=== PATIENT | male | born 1935 ===

== ENCOUNTER 2017-05-22 17:54 | Emergency (ER) | payer MEDICARE, MEDICAID ==
[2017-05-22 19:57] VITALS: RESP 18
[2017-05-22] MEDS ORDERED: Sodium Chloride 0.9% 500 ML IV ONE (20:04)
--- NOTE | 2017-05-22 20:04 | C.PDOC ---
History Of Present Illness Patient presents to the ER with a complaint of weakness, not feeling well, and malaise that has been worsening over the last 3 days; associated with a low grade fever. Denies nausea, vomiting, or diarrhea. Time Seen by Provider: 05/22/17 19:59 Chief Complaint (Nursing): Weakness/Neurological Deficit History Per: Patient History/Exam Limitations: no limitations Onset/Duration Of Symptoms: Days (3) Current Symptoms Are (Timing): Still Present Activity At Onset Of Symptoms: Other (No known) Seizure Or Post-ictal Symptoms: None Possible Causative Factor(s): Other (Not known) Fall Associated With With Symptoms: No Recent travel outside of the [place]: No - Symptoms Of CVA Associated Symptoms: denies: Impaired Speech, Seizure Activity, New Vision Deficit(Left), New Vision Deficit(Right), Decreased Ability To Walk, New Confusion, Other Recent Aspirin Use: No Current Coumadin Use?: No Recent Head Trauma: No Past Medical History Reviewed: Historical Data, Nursing Documentation, Vital Signs Vital Signs: Last Vital Signs Temp 98.3 F 05/22/17 22:12 Pulse 61 05/22/17 22:12 Resp 18 05/22/17 22:12 BP 105/61 05/22/17 22:12 Pulse Ox 97 05/22/17 22:12 - Medical History PMH: HTN Surgical History: No Surg Hx Family History: States: Unknown Family Hx - Social History Hx Alcohol Use: No Hx Substance Use: No - Immunization History Hx Tetanus Toxoid Vaccination: No Hx Influenza Vaccination: Yes Hx Pneumococcal Vaccination: No Review Of Systems Constitutional: Positive for: Fever, Weakness, Malaise Gastrointestinal: Negative for: Nausea, Vomiting, Diarrhea Physical Exam - Physical Exam Appears: Non-toxic, Other (Awake, Alert) Skin: Warm, Dry Oral Mucosa: Dry Chest: Symmetrical, No Tenderness Cardiovascular: Rhythm Regular, No Murmur Respiratory: No Rales, No Rhonchi, No Wheezing Gastrointestinal/Abdominal: Soft, No Tenderness Neurological/Psych: Oriented x3 ED Course And Treatment - Laboratory Results Result Diagrams: 05/22/17 20:11 05/22/17 20:11 ECG: Interpreted By Me, Viewed By Me ECG Rhythm: Nonspecific Changes O2 Sat by Pulse Oximetry: 95 (Room air) Pulse Ox Interpretation: Normal - Radiology CXR: Interpreted by Me, Viewed By Me CXR Interpretation: No: Infiltrates, Fracture, Pnemothorax Progress Note: Blood work and CXR ordered. Tylenol and IV fluids administered. Reevaluation Time: 22:16 Reassessment Condition: Improved Medical Decision Making Medical Decision Making: Upon provider reevaluation patient is feeling better, is medically stable, and requires no further treatment in the ED at this time. Patient will be discharged home . Counseling was provided and all questions were answered regarding diagnosis and need for follow up with the referred clinic. There is agreement to discharge plan. Return if symptoms persist or worsen. Disposition Counseled Patient/Family Regarding: Studies Performed, Diagnosis, Need For Followup - Disposition Referrals: [facility] [Outside] [facility] [Outside] Disposition: HOME/ ROUTINE Disposition Time: 20:04 Condition: FAIR Additional Instructions: Please return if symptoms recur Instructions: Fatigue (DC), Weakness (GEN) Print Language: FIJIAN - Clinical Impression Clinical Impression: Malaise and fatigue - Scribe Statement The provider has reviewed the documentation as recorded by the Vinodibkvng Lan All medical record entries made by the Sagar were at my direction and personally dictated by me. I have reviewed the chart and agree that the record accurately reflects my personal performance of the history, physical exam, medical decision making, and the department course for this patient. I have also personally directed, reviewed, and agree with the discharge instructions and disposition.
[2017-05-22 20:17] LABS: BASO % 0.3 % (0.0-2.0); EOS % 0.2 % (0.0-4.0); HEMOGLOBIN 13.6 g/dL (12.0-18.0); LYMPH # 1.1 K/uL (1.0-4.3); LYMPH % 15.4 % (20.0-40.0); MEAN CELL VOLUME 89.7 fL (80.0-94.0); MEAN CORPUSCULAR HEMOGLOBIN 30.1 pg (27.0-31.0); MEAN CORPUSCULAR HGB CONC 33.6 g/dL (33.0-37.0); MEAN PLATELET VOLUME 8.4 fL (7.2-11.7); MONO # 0.7 K/uL (0.0-0.8); MONO % 10.3 % (0.0-10.0); NEUT # 5.3 K/uL (1.8-7.0); NEUT % 73.8 % (50.0-75.0); RBC 4.53 Mil/uL (4.40-5.90); RED CELL DISTRIBUTION WIDTH 14.2 % (11.5-14.5); WHITE BLOOD COUNT 7.2 K/uL (4.8-10.8)
[2017-05-22 20:19] LABS: SQUAMOUS EPITHIAL 1 /hpf (0-5); URINE BACTERIA RARE (<OCC); URINE BILIRUBIN NEGATIVE (NEGATIVE); URINE BLOOD NEGATIVE (NEGATIVE); URINE CLARITY Clear (Clear); URINE COLOR Amber (YELLOW); URINE GLUCOSE (UA) NORMAL (Normal); URINE LEUKOCYTE ESTERASE NEG Leu/uL (Negative); URINE NITRATE NEGATIVE (NEGATIVE); URINE PROTEIN NEGATIVE (NEGATIVE)
[2017-05-22 20:22] LABS: VENOUS BLOOD GAS BASE EXCESS 4.2 mmol/L (0.0-2.0); VENOUS BLOOD GAS PCO2 44 mmHg (40-60); VENOUS BLOOD GAS PO2 37 mm/Hg (30-55); VENOUS BLOOD PH 7.43 (7.32-7.43)
[2017-05-22 20:24] LABS: ALBUMIN 3.8 g/dL (3.5-5.0)
[2017-05-22 20:25] LABS: INR 1.2; PROTHROMBIN TIME 13.8 SECONDS (9.7-12.2)
[2017-05-22 20:27] LABS: ALB/GLOB RATIO 1.2 (1.0-2.1); ALT/SGPT 45 U/L (21-72); AST/SGOT 30 U/L (17-59); BLOOD UREA NITROGEN 20 mg/dL (9-20); GFR AFRICAN-AMERICAN > 60; GFR NON-AFRICAN AMERICAN > 60
[2017-05-22 20:28] LABS: CALCIUM 8.9 mg/dl (8.6-10.4)
[2017-05-22 22:30] VITALS: BP 113/60; PULSE 72; TEMP 98.9; O2SAT 99
--- NOTE | 2017-05-23 08:36 | RAD ---
PROCEDURE: CHEST RADIOGRAPH, 1 VIEW. Portable study 20:13. HISTORY: SOB COMPARISON: None available. FINDINGS: LUNGS: Clear. PLEURA: Biapical pleural thickening without focal abnormality CARDIOVASCULAR: Normal. OSSEOUS STRUCTURES: No significant abnormalities. VISUALIZED UPPER ABDOMEN: Normal. OTHER FINDINGS: None. IMPRESSION: No active disease.
== END 2017-05-22 22:31 | disposition home or self-care (01) ==
LOC: C.ER 17:54
DX: R53.83 Other fatigue (principal)
CPT/HCPCS: 71010; 80053; 81001; 82009; 82803; 85025; 85610; 85730; 87040; 96360; 99285; J7040

== ENCOUNTER 2018-05-20 11:37 | Observation (INO) | payer OTHER ==
[2018-05-20 12:02] VITALS: BMI 22.7
--- NOTE | 2018-05-20 12:05 | C.PDOC ---
<Nabil More - Last Filed: 05/20/18 12:02> <Candi Davenport - Last Filed: 05/20/18 13:13> Time Seen by Provider: 05/20/18 11:54 Past Medical History - Medical History PMH: HTN Family History: States: Unknown Family Hx - Social History Hx Alcohol Use: No Hx Substance Use: No - Immunization History Hx Tetanus Toxoid Vaccination: No Hx Influenza Vaccination: Yes Hx Pneumococcal Vaccination: No <DerikAshutoshNabil - Last Filed: 05/20/18 12:02> Vital Signs: Last Vital Signs Temp 98 F 05/20/18 12:15 Pulse 53 L 05/20/18 12:15 Resp 18 05/20/18 12:15 BP 146/72 05/20/18 12:15 Pulse Ox 98 05/20/18 12:15 ED Course And Treatment - Laboratory Results Result Diagrams: 05/20/18 12:15 05/20/18 12:15 <Candi Davenport - Last Filed: 05/20/18 13:13> Medical Decision Making <DerikNabil marcum - Last Filed: 05/20/18 12:02> <Candi Davenport - Last Filed: 05/20/18 13:13> Medical Decision Makin83 year old male sent in from PMD for evaluation of ST elevations in inferior leads patient no CP or SOB per hx patient had CP on weekend described as sharp stabbing in nature left sided sent in from [facility] for to continue his cardiac care EKG reviewed - early repolarization in inferior leads discussed patient care with and in ED NURY telemetry stat echo further care to be resumed by (Nabil More) Disposition Discussed With : Candi Davenport Doctor Will See Patient In The: ED Counseled Patient/Family Regarding: Diagnosis - POA Present On Arrival: None Core Measure Indicators: Chest Pain <Nabil More - Last Filed: 05/20/18 12:02> Discussed With : Patti Aden <Candi Davenport - Last Filed: 05/20/18 13:13> - Disposition Disposition: HOSPITALIZED Condition: FAIR - Clinical Impression Clinical Impression: Malaise and fatigue
[2018-05-20 12:22] LABS: BASO % 0.4 % (0.0-2.0); EOS # 0.1 K/uL (0.0-0.7); EOS % 1.2 % (0.0-4.0); HEMOGLOBIN 15.9 g/dL (12.0-18.0); LYMPH # 1.6 K/uL (1.0-4.3); LYMPH % 27.3 % (20.0-40.0); MEAN CELL VOLUME 89.4 fL (80.0-94.0); MEAN CORPUSCULAR HEMOGLOBIN 30.8 pg (27.0-31.0); MEAN CORPUSCULAR HGB CONC 34.5 g/dL (33.0-37.0); MEAN PLATELET VOLUME 8.2 fL (7.2-11.7); MONO # 0.4 K/uL (0.0-0.8); MONO % 7.4 % (0.0-10.0); NEUT # 3.7 K/uL (1.8-7.0); NEUT % 63.7 % (50.0-75.0); RBC 5.18 Mil/uL (4.40-5.90); RED CELL DISTRIBUTION WIDTH 14.9 % (11.5-14.5); WHITE BLOOD COUNT 5.9 K/uL (4.8-10.8)
[2018-05-20 12:38] LABS: ALB/GLOB RATIO 1.4 (1.0-2.1); ALBUMIN 4.4 g/dL (3.5-5.0); ALT/SGPT 32 U/L (21-72); AST/SGOT 29 U/L (17-59); BLOOD UREA NITROGEN 15 mg/dL (9-20); CALCIUM 9.2 mg/dl (8.6-10.4); GFR AFRICAN-AMERICAN > 60; GFR NON-AFRICAN AMERICAN > 60
[2018-05-20 12:50] LABS: CK-MB 2.75 ng/mL (0.0-3.38)
[2018-05-20 13:02] LABS: INR 1.2
[2018-05-20 13:22] LABS: SQUAMOUS EPITHIAL < 1 /hpf (0-5); URINE BILIRUBIN NEGATIVE (NEGATIVE); URINE BLOOD NEGATIVE (NEGATIVE); URINE CLARITY Clear (Clear); URINE COLOR Yellow (YELLOW); URINE GLUCOSE (UA) NORMAL (Normal); URINE LEUKOCYTE ESTERASE NEG Leu/uL (Negative); URINE PROTEIN NEGATIVE (NEGATIVE)
--- NOTE | 2018-05-20 13:23 | C.PDOC ---
History Of Present Illness 83 year old male, whose PMHx includes Hypertension and Asthma/COPD (questionable , because patient is a poor historian), is brought to the ED by EMS for evaluation of chest pain. Patient states he has been experiencing chest pain for the past 3 days. He states his pain is sharp and is left-sided, while occasionally shooting to his right side. He denies shortness of breath. Patient went to see his doctor today, and EMS was called when he presented to the office. As per EMS, patient was sweating on the scene and his EKG in field showed ST elevation in inferior leads. Patient was given Aspirin on scene and brought to this ED. Upon ED arrival, patient is awake, alert and cooperative. He denies chest pain at this time. Additional history is limited secondary to patient being a poor historian. Time Seen by Provider: 05/20/18 11:54 Chief Complaint (Nursing): Chest Pain History Per: Patient, EMS History/Exam Limitations: other (poor historian ) Current Symptoms Are (Timing): Better Quality: Sharp, "Pain" Additional History Per: Patient, EMS Past Medical History Reviewed: Historical Data, Nursing Documentation, Vital Signs Vital Signs: Last Vital Signs Temp 98 F 05/20/18 12:15 Pulse 53 L 05/20/18 12:15 Resp 18 05/20/18 12:15 BP 146/72 05/20/18 12:15 Pulse Ox 98 05/20/18 13:58 - Medical History PMH: HTN Surgical History: No Surg Hx Family History: States: Unknown Family Hx - Social History Hx Alcohol Use: No Hx Substance Use: No - Immunization History Hx Tetanus Toxoid Vaccination: No Hx Influenza Vaccination: Yes Hx Pneumococcal Vaccination: No Review Of Systems Review Of Systems: ROS cannot be obtained secondary to pt's inabilty to answer questions. Physical Exam - Physical Exam Appears: Non-toxic, No Acute Distress Skin: Normal Color, Warm, Dry Head: Atraumatic, Normacephalic Eye(s): bilateral: Normal Inspection Oral Mucosa: Moist Neck: Supple Chest: Symmetrical, No Deformity, No Tenderness Cardiovascular: Rhythm Regular, No Murmur Respiratory: Normal Breath Sounds, No Rales, No Rhonchi, No Wheezing Extremity: Normal ROM, Capillary Refill (less than 2 seconds ) Neurological/Psych: Oriented x3, Normal Speech, Normal Cognition ED Course And Treatment - Laboratory Results Result Diagrams: 05/20/18 12:15 05/20/18 12:15 O2 Sat by Pulse Oximetry: 98 (on RA) Pulse Ox Interpretation: Normal Medical Decision Making Medical Decision Making: Impression: 83 year old male with chest pain Plan: * bloodwork * urinalysis * reassess and disposition Progress: EKG upon ED arrival shows early repolarization patterns, but no ST elevations. Dr. More briefly evaluated the patient at bedside, and agrees the case does not classify as a STEMI. Patient's troponin results are within normal limits. Will admit the patient to medicine telemetry to rule out ACS. Disposition Discussed With : Patti Aden Doctor Will See Patient In The: Hospital - Disposition Disposition: HOSPITALIZED Disposition Time: 13:23 Condition: FAIR - Clinical Impression Clinical Impression: Malaise and fatigue, Chest pain - Scribe Statement The provider has reviewed the documentation as recorded by the Scribe (Dyan Zuluaga) Provider Attestation: All medical record entries made by the Scribe were at my direction and personally dictated by me. I have reviewed the chart and agree that the record accurately reflects my personal performance of the history, physical exam, medical decision making, and the department course for this patient. I have also personally directed, reviewed, and agree with the discharge instructions and disposition. Decision To Admit - Pt Status Changed To: Hospital Disposition Of: Observation - . Bed Request Type: Telemetry Patient Diagnosis: Malaise and fatigue, Chest pain
[2018-05-20] MEDS ORDERED: Albuterol-Ipratrop 3 mg / 0.5 (3 ml) UD INH PRN (16:15)
--- NOTE | 2018-05-20 17:03 | CP.PCM.HP ---
History of Present Illness - History of Present Illness History of Present Illness: PGY-[address] Patti Aden service cc: Abnormal EKG at PMD's office HPI: Patient is a 83 year old male with Pmhx of HTN and Asthma, presents to the ED from [facility] (Dr. Fontana's office), for abnormal EKG found on site. Patient states he felt dizziness this morning while laying down, but did not have any chest pain, SOB or loss of consciousness. Patient is a poor historian, and rest of history was taken from nephharoldo Wilson and his Ely Wilson, who stated that he had an elevated blood pressure reading at a local health fair two weeks ago, and that lead them to schedule an appointment at [facility] for today. As per nephew, patient had a dry cough that started on saturday, which resolved with Robitussin 2 days later. The nephew stated that he is no longer taking medication since 6 months ago, since his primary care doctor discontinued his medications because he was feeling better. As per nephew , patient had no complains today, and was doing well overall. Patient admits to mild diaphoresis, mild headache, sore throat and chronic back pain. Patient denies fevers, chills, weakness, chest pain, palpitations, SOB, abdominal pain, nausea, vomiting, diarrhea, constipation, leg swelling, dysuria or bruising. PMD: Dr Fontana ([facility]) Pmhx: HTN, Asthma PShx: denies All: none Fmhx: sister, - Cancer Social hx: Patient denies tobacco, alcohol or illicit drug use. Patient lives with Nephharoldo Wilson, and his Ely Wilson Meds: Vitamins Present on Admission - Present on Admission Any Indicators Present on Admission: No Review of Systems - Review of Systems Systems not reviewed;Unavailable: Language Barrier - Constitutional Constitutional: Headache. absent: Chills, Excessive Sweating, Fatigue, Fever, Weakness - EENT Eyes: absent: Change in Vision Ears: absent: Decreased Hearing Nose/Mouth/Throat: absent: Sore Throat - Cardiovascular Cardiovascular: absent: Chest Pain, Diaphoresis, Dyspnea, Edema, Leg Edema, Lightheadedness, Palpitations - Respiratory Respiratory: absent: Cough, Dyspnea, Wheezing - Gastrointestinal Gastrointestinal: absent: Abdominal Pain, Constipation, Diarrhea, Nausea, Vomiting - Genitourinary Genitourinary: absent: Dysuria - Musculoskeletal Musculoskeletal: Back Pain - Neurological Neurological: Headaches. absent: Dizziness, Syncope, Vertigo, Weakness - Endocrine Endocrine: absent: Excessive Sweating, Fatigue, Palpitations Past Patient History - Infectious Disease Hx of Infectious Diseases: None - Past Social History Smoking Status: Never Smoked - CARDIAC Hx Hypertension: Yes - ENDOCRINE/METABOLIC Hx Diabetes Mellitus Type 2: Yes - PSYCHIATRIC Hx Substance Use: No - SURGICAL HISTORY Hx Surgeries: No - ANESTHESIA Hx Anesthesia: No Meds Allergies/Adverse Reactions: Allergies Allergy/AdvReac Type Severity Reaction Status Date / Time No Known Allergies Allergy Unverified 05/22/17 18:01 Physical Exam - Constitutional Appears: Well, Non-toxic, No Acute Distress - Head Exam Head Exam: ATRAUMATIC, NORMAL INSPECTION, NORMOCEPHALIC - Eye Exam Eye Exam: EOMI, Normal appearance, PERRL Pupil Exam: NORMAL ACCOMODATION Additional comments: arcus senilis noted bilaterally - ENT Exam ENT Exam: Mucous Membranes Dry, Normal Exam - Neck Exam Neck exam: Positive for: Full Rom, Normal Inspection - Respiratory Exam Respiratory Exam: Clear to Auscultation Bilateral, NORMAL BREATHING PATTERN. absent: Rales, Rhonchi, Wheezes - Cardiovascular Exam Cardiovascular Exam: Bradycardia, +S1, +S2. absent: Clicks, Rubs - GI/Abdominal Exam GI & Abdominal Exam: Normal Bowel Sounds, Soft. absent: Distended, Rebound, Rigid, Tenderness - Extremities Exam Extremities exam: Positive for: full ROM, normal capillary refill, normal inspection, pedal pulses present. Negative for: joint swelling, pedal edema, tenderness - Back Exam Back exam: FULL ROM, NORMAL INSPECTION. absent: rash noted, tenderness, vertebral tenderness - Neurological Exam Neurological exam: Alert Additional comments: Oriented x2 - Psychiatric Exam Psychiatric exam: Normal Affect, Normal Mood - Skin Skin Exam: Dry, Intact Results - Vital Signs Recent Vital Signs: Last Vital Signs Temp 98.2 F 05/20/18 16:29 Pulse 47 L 05/20/18 16:29 Resp 18 05/20/18 16:29 BP 142/68 05/20/18 16:29 Pulse Ox 98 05/20/18 16:29 - Labs Result Diagrams: 05/20/18 12:15 05/20/18 12:15 Labs: Laboratory Results - last 24 hr 05/20/18 05/20/18 05/20/18 11:49 12:15 12:15 WBC 5.9 RBC 5.18 Hgb 15.9 D Hct 46.3 MCV 89.4 MCH 30.8 MCHC 34.5 RDW 14.9 H Plt Count 183 MPV 8.2 Neut % (Auto) 63.7 Lymph % (Auto) 27.3 [place] % (Auto) 7.4 Eos % (Auto) 1.2 Baso % (Auto) 0.4 Neut # (Auto) 3.7 Lymph # (Auto) 1.6 [place] # (Auto) 0.4 Eos # (Auto) 0.1 Baso # (Auto) 0.0 PT INR APTT Sodium 142 Potassium 4.6 Chloride 101 Carbon Dioxide 28 Anion Gap 17 BUN 15 Creatinine 0.7 L Est GFR ( Amer) > 60 Est GFR (Non-Af Amer) > 60 POC Glucose (mg/dL) 103 Random Glucose 102 Calcium 9.2 Total Bilirubin 1.0 AST 29 ALT 32 Alkaline Phosphatase 75 Total Creatine Kinase 99 CK-MB (Mass) 2.75 Troponin I < 0.0120 Total Protein 7.5 Albumin 4.4 Globulin 3.1 Albumin/Globulin Ratio 1.4 Urine Color Urine Clarity Urine pH Ur Specific [place] Urine Protein Urine Glucose (UA) Urine Ketones Urine Blood Urine Nitrate Urine Bilirubin Urine Urobilinogen Ur Leukocyte Esterase Urine WBC (Auto) Urine RBC (Auto) Ur Squamous Epith Cells 05/20/18 05/20/18 12:53 13:06 WBC RBC Hgb Hct MCV MCH MCHC RDW Plt Count MPV Neut % (Auto) Lymph % (Auto) [place] % (Auto) Eos % (Auto) Baso % (Auto) Neut # (Auto) Lymph # (Auto) [place] # (Auto) Eos # (Auto) Baso # (Auto) PT 13.0 H INR 1.2 APTT 36 H Sodium Potassium Chloride Carbon Dioxide Anion Gap BUN Creatinine Est GFR ( Amer) Est GFR (Non-Af Amer) POC Glucose (mg/dL) Random Glucose Calcium Total Bilirubin AST ALT Alkaline Phosphatase Total Creatine Kinase CK-MB (Mass) Troponin I Total Protein Albumin Globulin Albumin/Globulin Ratio Urine Color Yellow Urine Clarity Clear Urine pH 6.0 Ur Specific [place] 1.018 Urine Protein Negative Urine Glucose (UA) Normal Urine Ketones Negative Urine Blood Negative Urine Nitrate Negative Urine Bilirubin Negative Urine Urobilinogen 2.0 Ur Leukocyte Esterase Neg Urine WBC (Auto) < 1 Urine RBC (Auto) < 1 Ur Squamous Epith Cells < 1 Assessment & Plan - Assessment and Plan (Free Text) Plan: Abnormal EKG -ASA 325mg PO x1 given at PMD office, start Aspirin 81mg PO Qdaily -Cardiology (dr Saxena) on board -Hold betablocker/calcium due to bradycardia -Note: patient has been off meds for 6 months -Cardiology merchandising execution associate evaluation and repolarization, recommend STAT echo, NURY and telemetry -F/U EKG series (6pm and 05/21 12am) -F/U NURY x 2 (6pm and 05/21 12am) -Cardiac risk: F/U HbgA1c, Lipid panel, ProBNP -F/U TSH, Free T4 Hx of Hypertension -hold antihypertensive (son inhibitor) -monitor on telemetry Lipid disorder - Lipid panel AM - Held statin Asthma, controlled - duonebs [id number] PRN shortness of breath -portable chest xray: reason - dry cough Prophylactic care -Fall precautions -PT/OT evaluations -DVT prophylaxis: Lovenox 40mg subQ daily, SCDs -GI prophylaxis: Pepcid 20mg PO bid Yolanda wilson is patient's contact: [phone] Plan was discussed with Dr. Keiko Arora, PGY-1 - Date & Time Date: 05/20/18 Time: 17:45
[2018-05-21 01:16] LABS: CK-MB 1.68 ng/mL (0.0-3.38)
[2018-05-21 01:48] VITALS: RESP 20
[2018-05-21 07:27] LABS: BASO % 0.4 % (0.0-2.0); EOS # 0.2 K/uL (0.0-0.7); EOS % 2.9 % (0.0-4.0); HEMOGLOBIN 14.6 g/dL (12.0-18.0); LYMPH # 1.5 K/uL (1.0-4.3); MEAN CELL VOLUME 88.8 fL (80.0-94.0); MEAN CORPUSCULAR HEMOGLOBIN 30.9 pg (27.0-31.0); MEAN CORPUSCULAR HGB CONC 34.8 g/dL (33.0-37.0); MEAN PLATELET VOLUME 8.4 fL (7.2-11.7); MONO # 0.4 K/uL (0.0-0.8); NEUT # 3.2 K/uL (1.8-7.0); NEUT % 60.7 % (50.0-75.0); NRBC % 0.1 % (0.0-2.0); RBC 4.72 Mil/uL (4.40-5.90); RED CELL DISTRIBUTION WIDTH 14.5 % (11.5-14.5); WHITE BLOOD COUNT 5.2 K/uL (4.8-10.8)
[2018-05-21 07:34] LABS: ALB/GLOB RATIO 1.3 (1.0-2.1); ALBUMIN 3.7 g/dL (3.5-5.0); ALT/SGPT 30 U/L (21-72); AST/SGOT 22 U/L (17-59); BLOOD UREA NITROGEN 18 mg/dL (9-20); CALCIUM 9.2 mg/dl (8.6-10.4); GFR AFRICAN-AMERICAN > 60; GFR NON-AFRICAN AMERICAN > 60; HDL CHOLESTEROL 28 mg/dL (30-70)
--- NOTE | 2018-05-21 07:34 | RAD ---
Date of service: 05/20/2018 PROCEDURE: CHEST RADIOGRAPH, 1 VIEW HISTORY: dry cough abnormal EKG COMPARISON: Portable chest 05/22/2017. FINDINGS: LUNGS: No interval pulmonary disease appreciated. PLEURA: No pneumothorax or pleural fluid seen. CARDIOVASCULAR: Normal. OSSEOUS STRUCTURES: No significant abnormalities. VISUALIZED UPPER ABDOMEN: Normal. OTHER FINDINGS: None. IMPRESSION: No interval acute cardiopulmonary disease appreciated.
[2018-05-21 07:35] LABS: LDL CHOLESTEROL 137 mg/dL (0-129)
--- NOTE | 2018-05-21 08:10 | CP.PCM.CON ---
History of Present Illness - History of Present Illness History of Present Illness: patient seen examined. full consult to follow. history of HTn presents with chest pain this weekend and associated dizziness. inferior ST segment changes thought to be repolarization abnormalities. cardiac enzymes negative no current chest pain. can d/c home. outpatient stress test. Past Patient History - Infectious Disease Hx of Infectious Diseases: None - Past Social History Smoking Status: Never Smoked - CARDIAC Hx Hypertension: Yes - ENDOCRINE/METABOLIC Hx Diabetes Mellitus Type 2: Yes - MUSCULOSKELETAL/RHEUMATOLOGICAL Hx Falls: No - PSYCHIATRIC Hx Substance Use: No - SURGICAL HISTORY Hx Surgeries: No - ANESTHESIA Hx Anesthesia: No Meds Allergies/Adverse Reactions: Allergies Allergy/AdvReac Type Severity Reaction Status Date / Time No Known Allergies Allergy Unverified 05/22/17 18:01 - Medications Medications: Current Medications Albuterol/Ipratropium (Duoneb 3 Mg/0.5 Mg (3 Ml) Ud) 3 ml INH RQ6 PRN PRN Reason: Shortness of Breath Aspirin (Aspirin Chewable) 81 mg PO DAILY [facility] Enoxaparin Sodium (Lovenox) 40 mg SC DAILY [facility] Famotidine (Pepcid) 20 mg PO BID [facility] Last Admin: 05/20/18 18:14 Dose: 20 mg Pneumococcal Polyvalent Vaccine (Pneumovax 23 Vaccine) 0.5 ml IM .ONCE ONE Stop: 05/21/18 10:01 Results - Vital Signs Recent Vital Signs: Last Vital Signs Temp 97.5 F L 05/20/18 23:40 Pulse 48 L 05/21/18 03:40 Resp 20 05/20/18 23:40 BP 106/60 05/20/18 23:40 Pulse Ox 96 05/20/18 23:40 - Labs Result Diagrams: 05/21/18 07:01 05/21/18 07:01 Labs: Laboratory Results - last 24 hr 05/20/18 05/20/18 05/20/18 11:49 12:15 12:15 WBC 5.9 RBC 5.18 Hgb 15.9 D Hct 46.3 MCV 89.4 MCH 30.8 MCHC 34.5 RDW 14.9 H Plt Count 183 MPV 8.2 Neut % (Auto) 63.7 Lymph % (Auto) 27.3 Wilson % (Auto) 7.4 Eos % (Auto) 1.2 Baso % (Auto) 0.4 Neut # (Auto) 3.7 Lymph # (Auto) 1.6 Wilson # (Auto) 0.4 Eos # (Auto) 0.1 Baso # (Auto) 0.0 PT INR APTT Sodium 142 Potassium 4.6 Chloride 101 Carbon Dioxide 28 Anion Gap 17 BUN 15 Creatinine 0.7 L Est GFR ( Amer) > 60 Est GFR (Non-Af Amer) > 60 POC Glucose (mg/dL) 103 Random Glucose 102 Calcium 9.2 Total Bilirubin 1.0 AST 29 ALT 32 Alkaline Phosphatase 75 Total Creatine Kinase 99 CK-MB (Mass) 2.75 Troponin I < 0.0120 NT-Pro-B Natriuret Pep Total Protein 7.5 Albumin 4.4 Globulin 3.1 Albumin/Globulin Ratio 1.4 Triglycerides Cholesterol LDL Cholesterol Direct HDL Cholesterol Free T4 Urine Color Urine Clarity Urine pH Ur Specific [place] Urine Protein Urine Glucose (UA) Urine Ketones Urine Blood Urine Nitrate Urine Bilirubin Urine Urobilinogen Ur Leukocyte Esterase Urine WBC (Auto) Urine RBC (Auto) Ur Squamous Epith Cells 05/20/18 05/20/18 05/20/18 12:53 13:06 19:35 WBC RBC Hgb Hct MCV MCH MCHC RDW Plt Count MPV Neut % (Auto) Lymph % (Auto) Wilson % (Auto) Eos % (Auto) Baso % (Auto) Neut # (Auto) Lymph # (Auto) Wilson # (Auto) Eos # (Auto) Baso # (Auto) PT 13.0 H INR 1.2 APTT 36 H Sodium Potassium Chloride Carbon Dioxide Anion Gap BUN Creatinine Est GFR ( Amer) Est GFR (Non-Af Amer) POC Glucose (mg/dL) Random Glucose Calcium Total Bilirubin AST ALT Alkaline Phosphatase Total Creatine Kinase 81 CK-MB (Mass) 1.90 Troponin I < 0.0120 NT-Pro-B Natriuret Pep Total Protein Albumin Globulin Albumin/Globulin Ratio Triglycerides Cholesterol LDL Cholesterol Direct HDL Cholesterol Free T4 Urine Color Yellow Urine Clarity Clear Urine pH 6.0 Ur Specific [place] 1.018 Urine Protein Negative Urine Glucose (UA) Normal Urine Ketones Negative Urine Blood Negative Urine Nitrate Negative Urine Bilirubin Negative Urine Urobilinogen 2.0 Ur Leukocyte Esterase Neg Urine WBC (Auto) < 1 Urine RBC (Auto) < 1 Ur Squamous Epith Cells < 1 05/20/18 05/21/18 05/21/18 20:29 00:39 07:01 WBC 5.2 RBC 4.72 Hgb 14.6 Hct 41.9 MCV 88.8 MCH 30.9 MCHC 34.8 RDW 14.5 Plt Count 176 MPV 8.4 Neut % (Auto) 60.7 Lymph % (Auto) 28.0 Wilson % (Auto) 8.0 Eos % (Auto) 2.9 Baso % (Auto) 0.4 Neut # (Auto) 3.2 Lymph # (Auto) 1.5 Wilson # (Auto) 0.4 Eos # (Auto) 0.2 Baso # (Auto) 0.0 PT INR APTT Sodium Potassium Chloride Carbon Dioxide Anion Gap BUN Creatinine Est GFR ( Amer) Est GFR (Non-Af Amer) POC Glucose (mg/dL) Random Glucose Calcium Total Bilirubin AST ALT Alkaline Phosphatase Total Creatine Kinase 72 CK-MB (Mass) 1.68 Troponin I < 0.0120 NT-Pro-B Natriuret Pep 65.4 Total Protein Albumin Globulin Albumin/Globulin Ratio Triglycerides Cholesterol LDL Cholesterol Direct HDL Cholesterol Free T4 Urine Color Urine Clarity Urine pH Ur Specific [place] Urine Protein Urine Glucose (UA) Urine Ketones Urine Blood Urine Nitrate Urine Bilirubin Urine Urobilinogen Ur Leukocyte Esterase Urine WBC (Auto) Urine RBC (Auto) Ur Squamous Epith Cells 05/21/18 05/21/18 07:01 07:01 WBC RBC Hgb Hct MCV MCH MCHC RDW Plt Count MPV Neut % (Auto) Lymph % (Auto) Wilson % (Auto) Eos % (Auto) Baso % (Auto) Neut # (Auto) Lymph # (Auto) Wilson # (Auto) Eos # (Auto) Baso # (Auto) PT INR APTT Sodium 139 Potassium 4.2 Chloride 103 Carbon Dioxide 28 Anion Gap 13 BUN 18 Creatinine 0.8 Est GFR ( Amer) > 60 Est GFR (Non-Af Amer) > 60 POC Glucose (mg/dL) Random Glucose 104 Calcium 9.2 Total Bilirubin 1.2 AST 22 ALT 30 Alkaline Phosphatase 62 Total Creatine Kinase CK-MB (Mass) Troponin I NT-Pro-B Natriuret Pep Total Protein 6.5 Albumin 3.7 Globulin 2.8 Albumin/Globulin Ratio 1.3 Triglycerides 137 Cholesterol 200 H LDL Cholesterol Direct 137 H HDL Cholesterol 28 L Free T4 0.90 Urine Color Urine Clarity Urine pH Ur Specific [place] Urine Protein Urine Glucose (UA) Urine Ketones Urine Blood Urine Nitrate Urine Bilirubin Urine Urobilinogen Ur Leukocyte Esterase Urine WBC (Auto) Urine RBC (Auto) Ur Squamous Epith Cells
--- NOTE | 2018-05-21 09:02 | CP.PCM.PN ---
Objective - Vital Signs/Intake and Output Vital Signs (last 24 hours): Temp Pulse Resp BP Pulse Ox 97.5 F L 46 L 20 112/74 97 05/21/18 07:00 05/21/18 07:00 05/21/18 07:00 05/21/18 07:00 05/21/18 07:00 - Medications Medications: Current Medications Albuterol/Ipratropium (Duoneb 3 Mg/0.5 Mg (3 Ml) Ud) 3 ml INH RQ6 PRN PRN Reason: Shortness of Breath Aspirin (Aspirin Chewable) 81 mg PO DAILY [facility] Enoxaparin Sodium (Lovenox) 40 mg SC DAILY [facility] Famotidine (Pepcid) 20 mg PO BID [facility] Last Admin: 05/20/18 18:14 Dose: 20 mg Pneumococcal Polyvalent Vaccine (Pneumovax 23 Vaccine) 0.5 ml IM .ONCE ONE Stop: 05/21/18 10:01 - Labs Labs: 05/21/18 07:01 05/21/18 07:01 PT 13.0 SECONDS (9.7-12.2) H 05/20/18 12:53 INR 1.2 05/20/18 12:53 APTT 36 SECONDS (21-34) H 05/20/18 12:53
[2018-05-21] MEDS: Enoxaparin 40 mg Syringe SC SCH ×2 (09:17→09:18)
[2018-05-21] MEDS ORDERED: Pneumococcal 23-Valent Vaccine IM ONE (10:00)
[2018-05-21 15:39] VITALS: BP 123/69; PULSE 47; TEMP 98.3; O2SAT 97
--- NOTE | 2018-05-21 17:16 | CARD ---
APPROVED REPORT Date of service: 05/20/2018 EKG Measurement Heart [id number] <Conclusion> Sinus bradycardia Otherwise normal ECG
--- NOTE | 2018-05-21 17:17 | CARD ---
APPROVED REPORT Date of service: 05/20/2018 EKG Measurement Heart [id number] <Conclusion> Sinus bradycardia Possible inferior infarct, age undetermined Otherwise normal ECG
--- NOTE | 2018-05-21 17:22 | CARD ---
APPROVED REPORT Date of service: 05/21/2018 EKG Measurement Heart [id number] <Conclusion> Marked sinus bradycardia Abnormal ECG
--- NOTE | 2018-05-21 21:50 | CP.PCM.DIS ---
Provider - Provider Date of Admission: 05/20/18 13:24 Attending physician: Patti Aden DO Primary care physician: Dr. Fontana Consults: Dr. Campbell Time Spent in preparation of Discharge (in minutes): 40 Diagnosis - Discharge Diagnosis (1) Chest pain Status: Acute Comment: Troponins were negative X 3. Chest Xray was negative. Chest pain resolved. Hospital Course - Lab Results Lab Results: Most Recent Lab Values WBC 5.2 K/uL (4.8-10.8) 05/21/18 07:01 RBC 4.72 Mil/uL (4.40-5.90) 05/21/18 07:01 Hgb 14.6 g/dL (12.0-18.0) 05/21/18 07:01 Hct 41.9 % (35.0-51.0) 05/21/18 07:01 MCV 88.8 fL (80.0-94.0) 05/21/18 07:01 MCH 30.9 pg (27.0-31.0) 05/21/18 07:01 MCHC 34.8 g/dL (33.0-37.0) 05/21/18 07:01 RDW 14.5 % (11.5-14.5) 05/21/18 07:01 Plt Count 176 K/uL (130-400) 05/21/18 07:01 MPV 8.4 fL (7.2-11.7) 05/21/18 07:01 Neut % (Auto) 60.7 % (50.0-75.0) 05/21/18 07:01 Lymph % (Auto) 28.0 % (20.0-40.0) 05/21/18 07:01 [place] % (Auto) 8.0 % (0.0-10.0) 05/21/18 07:01 Eos % (Auto) 2.9 % (0.0-4.0) 05/21/18 07:01 Baso % (Auto) 0.4 % (0.0-2.0) 05/21/18 07:01 Neut # (Auto) 3.2 K/uL (1.8-7.0) 05/21/18 07:01 Lymph # (Auto) 1.5 K/uL (1.0-4.3) 05/21/18 07:01 [place] # (Auto) 0.4 K/uL (0.0-0.8) 05/21/18 07:01 Eos # (Auto) 0.2 K/uL (0.0-0.7) 05/21/18 07:01 Baso # (Auto) 0.0 K/uL (0.0-0.2) 05/21/18 07:01 PT 13.0 SECONDS (9.7-12.2) H 05/20/18 12:53 INR 1.2 05/20/18 12:53 APTT 36 SECONDS (21-34) H 05/20/18 12:53 Sodium 139 mmol/L (132-148) 05/21/18 07:01 Potassium 4.2 mmol/L (3.6-5.2) 05/21/18 07:01 Chloride 103 mmol/L (98-107) 05/21/18 07:01 Carbon Dioxide 28 mmol/L (22-30) 05/21/18 07:01 Anion Gap 13 (10-20) 05/21/18 07:01 BUN 18 mg/dL (9-20) 05/21/18 07:01 Creatinine 0.8 mg/dL (0.8-1.5) 05/21/18 07:01 Est GFR ( Amer) > 60 05/21/18 07:01 Est GFR (Non-Af Amer) > 60 05/21/18 07:01 POC Glucose (mg/dL) 103 mg/dL (65-110) 05/20/18 11:49 Random Glucose 104 mg/dL (75-110) 05/21/18 07:01 Hemoglobin A1c 6.0 % (4.2-6.5) 05/21/18 07:01 Calcium 9.2 mg/dl (8.6-10.4) 05/21/18 07:01 Total Bilirubin 1.2 mg/dL (0.2-1.3) 05/21/18 07:01 AST 22 U/L (17-59) 05/21/18 07:01 ALT 30 U/L (21-72) 05/21/18 07:01 Alkaline Phosphatase 62 U/L (38-126) 05/21/18 07:01 Total Creatine Kinase 72 U/L (55-170) 05/21/18 00:39 CK-MB (Mass) 1.68 ng/mL (0.0-3.38) 05/21/18 00:39 Troponin I < 0.0120 ng/mL (0.00-0.120) 05/21/18 00:39 NT-Pro-B Natriuret Pep 65.4 pg/mL (0-900) 05/20/18 20:29 Total Protein 6.5 g/dL (6.3-8.3) 05/21/18 07:01 Albumin 3.7 g/dL (3.5-5.0) 05/21/18 07:01 Globulin 2.8 gm/dL (2.2-3.9) 05/21/18 07:01 Albumin/Globulin Ratio 1.3 (1.0-2.1) 05/21/18 07:01 Triglycerides 137 mg/dL (0-149) 05/21/18 07:01 Cholesterol 200 mg/dL (0-199) H 05/21/18 07:01 LDL Cholesterol Direct 137 mg/dL (0-129) H 05/21/18 07:01 HDL Cholesterol 28 mg/dL (30-70) L 05/21/18 07:01 Free T4 0.90 ng/dL (0.78-2.19) 05/21/18 07:01 TSH 3rd Generation 1.12 mIU/L (0.46-4.68) 05/21/18 07:01 Urine Color Yellow (YELLOW) 05/20/18 13:06 Urine Clarity Clear (Clear) 05/20/18 13:06 Urine pH 6.0 (5.0-8.0) 05/20/18 13:06 Ur Specific [place] 1.018 (1.003-1.030) 05/20/18 13:06 Urine Protein Negative mg/dL (NEGATIVE) 05/20/18 13:06 Urine Glucose (UA) Normal mg/dL (Normal) 05/20/18 13:06 Urine Ketones Negative mg/dL (NEGATIVE) 05/20/18 13:06 Urine Blood Negative (NEGATIVE) 05/20/18 13:06 Urine Nitrate Negative (NEGATIVE) 05/20/18 13:06 Urine Bilirubin Negative (NEGATIVE) 05/20/18 13:06 Urine Urobilinogen 2.0 mg/dL (0.2-1.0) 05/20/18 13:06 Ur Leukocyte Esterase Neg Halie/uL (Negative) 05/20/18 13:06 Urine WBC (Auto) < 1 /hpf (0-5) 05/20/18 13:06 Urine RBC (Auto) < 1 /hpf (0-3) 05/20/18 13:06 Ur Squamous Epith Cells < 1 /hpf (0-5) 05/20/18 13:06 - Hospital Course Hospital Course: HPI: Patient is a 83 year old male with Pmhx of HTN and Asthma, presents to the ED from [facility] (Dr. Fontana's office), for abnormal EKG found on site. Patient states he felt dizziness this morning while laying down, but did not have any chest pain, SOB or loss of consciousness. Patient is a poor historian, and rest of history was taken from nephew Kenyon Zapataeco and his Ely Briceno, who stated that he had an elevated blood pressure reading at a local health fair two weeks ago, and that lead them to schedule an appointment at [place] for today. As per nephew, patient had a dry cough that started on saturday, which resolved with Robitussin 2 days later. The nephew stated that he is no longer taking medication since 6 months ago, since his primary care doctor discontinued his medications because he was feeling better. As per nephew , patient had no complains today, and was doing well overall. Patient admits to mild diaphoresis, mild headache, sore throat and chronic back pain. Patient denies fevers, chills, weakness, chest pain, palpitations, SOB, abdominal pain, nausea, vomiting, diarrhea, constipation, leg swelling, dysuria or bruising. During patient course, patient troponins were monitored X3 and were negative. chest xray was negative Cardiology saw him and determined outpatient stress test would be ideal in lieu of patient chest pain resolving. Patient was given aspirin & pepcid while in hospital. This is only a summary of the patients stay at the hospital. For more details please refer to EMR. Patient was discharged with the following instructions and was provided a copy of the instructions. Patient is medically stable for discharge. Patient has not been taking his home medications for several months and should NOT start taking them. Patient will be discharged with no medications. Patient should follow up with Dr. Campbell as outpatient as well in one to two weeks. Please call the office to make an appointment to schedule the outpatient stress test appointment. Patient should follow up with his primary Dr Fontana in one to two weeks. Please toshia to make an office appointment. If patient has symptoms of chest pain that arise again he should return to the nearest emergency facility. Take care. Discharge Exam - Head Exam Head Exam: ATRAUMATIC, NORMAL INSPECTION, NORMOCEPHALIC - Eye Exam Eye Exam: EOMI, Normal appearance, PERRL Pupil Exam: NORMAL ACCOMODATION - ENT Exam ENT Exam: Mucous Membranes Moist - Respiratory Exam Respiratory Exam: NORMAL BREATHING PATTERN, UNREMARKABLE. absent: Rales, Rhonchi, Wheezes - Cardiovascular Exam Cardiovascular Exam: +S1, +S2. absent: Irregular Rhythm, Systolic Murmur - GI/Abdominal Exam GI & Abdominal Exam: Normal Bowel Sounds, Soft. absent: Firm, Guarding, Hernia - Extremities Exam Additional comments: no calf tenderness, no pedal edema, pt able to move all 4 extremities, pulses present in all 4 extremities - Neurological Exam Neurological exam: Alert, Altered, Oriented x3 - Psychiatric Exam Psychiatric exam: Normal Affect, Normal Mood - Skin Skin Exam: Dry, Intact, Normal Color, Warm Discharge Plan - Follow Up Plan Condition: FAIR Disposition: HOME/ ROUTINE Instructions: Heart Healthy Diet, Chest Pain (DC), Fatigue (DC) Additional Instructions: Patient is medically stable for discharge. Patient has not been taking his home medications for several months and should NOT start taking them. Patient will be discharged with no medications. Patient should follow up with Dr. Campbell as outpatient as well in one to two weeks. Please call the office to make an appointment to schedule the outpatient stress test appointment. Patient should follow up with his primary Dr Fontaan in one to two weeks. Please toshia to make an office appointment. If patient has symptoms of chest pain that arise again he should return to the nearest emergency facility. Take care. El paciente es mdicamente estable para el garrison. El paciente no dukes estado tomando los medicamentos de [place] casa bibiana varios meses y NO debe comenzar a tomarlos. El paciente ser dado de garrison sin medicamentos. El paciente debe hacer un seguimiento con el Dr. Campbell sergo paciente ambulatorio tambin en hortencia o dos semanas. Llame a la oficina para programar hortencia kodak para programar la kodak para la prueba de esfuerzo para pacientes ambulatorios. El paciente debe seguir con [place] principal Dr. Fontana en hortencia o dos semanas. Por favor llame para hacer hortencia kodak de oficina. Si el paciente tiene sntomas de dolor en el pecho que surgen nuevamente, debe regresar a la instalacin de emergencia ms cercana. Cudate. Referrals: [facility] [Provider Group] Ewelina Campbell MD [Staff Provider] -
--- NOTE | 2018-05-21 23:34 | CARD ---
APPROVED REPORT Date of service: 05/21/2018 EXAM: Two-dimensional and M-mode echocardiogram with Doppler and color Doppler. Other Information Quality : TDSRhythm : INDICATION Abnormal EKG/Arrhythmia Chest Pain RISK FACTORS Hyperlipidemia 2D DIMENSIONS IVSd0.8 (0.7-1.1cm)LVDd4.9 (3.9-5.9cm) PWd1.0 (0.7-1.1cm)LVDs3.1 (2.5-4.0cm) FS (%) 35.8 %LVEF (%)65.1 (>50%) M-Mode DIMENSIONS Left Atrium (MM)2.65 (2.5-4.0cm)IVSd0.88 (0.7-1.1cm) Aortic Root3.71 (2.2-3.7cm)LVDd5.76 (4.0-5.6cm) Aortic Cusp Exc.2.05 (1.5-2.0cm)PWd0.96 (0.7-1.1cm) FS (%) 31 %LVDs3.95 (2.0-3.8cm) LVEF (%)59 (>50%) Aortic Valve AI P 1/2 [id number] Mitral Valve MV E Mrtjymfd65.3cm/sMV A Zxxcblxx70.3cm/sE/A ratio0.9 TDI E/Lateral E'0.0E/Medial E'0.0 LEFT VENTRICLE The left ventricle is grossly normal size. Left ventricle systolic function appears normal with Ejection Fraction of 60-65%. Left ventricular wall motion appears normal. The left ventricular diastolic function is normal. No left ventricle thrombus noted on this study. RIGHT VENTRICLE The right ventricle appears normal size. The right ventricular systolic function appears normal. ATRIA The left atrium size is normal. The right atrium size is normal. AORTIC VALVE The aortic valve is mildly thickened. There is trace to mild aortic regurgitation. There is no aortic valvular stenosis. There is no aortic valvular vegetation. MITRAL VALVE Mitral annular calcification is mild. There is no evidence of mitral valve prolapse. There is no mitral valve stenosis. Mitral regurgitation is trace. TRICUSPID VALVE The tricuspid valve is normal in structure. There is no tricuspid valve regurgitation noted. There is no tricuspid valve stenosis. PULMONIC VALVE The pulmonic valve is not well visualized. There is no pulmonic valvular regurgitation. GREAT VESSELS The aortic root is normal in size. The IVC is normal in size and collapses >50% with inspiration. PERICARDIAL EFFUSION There is no pericardial effusion. There is no pleural effusion. <Conclusion> Technically difficult study. Left ventricle systolic function appears normal with Ejection Fraction of 60-65%. The left ventricular diastolic function is normal. There is trace to mild aortic regurgitation. Mitral regurgitation is trace.
== END 2018-05-21 16:49 | disposition home or self-care (01) ==
LOC: C.ER 11:37 → C.9E 13:24 → C.6T 14:56
PROVIDERS: ADMIT Hospitalist; ATTEND Hospitalist
DX: R07.9 Chest pain, unspecified (principal); R53.81 Other malaise; E11.9 Type 2 diabetes mellitus without complications; G89.29 Other chronic pain; I10 Essential (primary) hypertension; J44.9 Chronic obstructive pulmonary disease, unspecified; R42 Dizziness and giddiness
CPT/HCPCS: 36415; 71045; 80053; 80061; 81001; 82948; 83036; 83880; 84439; 84443; 84484; 85025; 85610; 85730; 93005; 93306; 94640; 97116; 97162; 97165; 97530; 99283; G0378; G8978; G8979; G8987; G8988; G8989

== ENCOUNTER 2018-07-12 16:41 | Inpatient (IN) | payer OTHER ==
[2018-07-12 16:51] VITALS: BMI 22.0
[2018-07-12 17:39] LABS: BASO % 0.5 % (0.0-2.0); EOS # 0.1 K/uL (0.0-0.7); HEMOGLOBIN 14.9 g/dL (12.0-18.0); LYMPH # 1.8 K/uL (1.0-4.3); LYMPH % 29.3 % (20.0-40.0); MEAN CELL VOLUME 90.8 fL (80.0-94.0); MEAN CORPUSCULAR HEMOGLOBIN 30.9 pg (27.0-31.0); MEAN PLATELET VOLUME 8.1 fL (7.2-11.7); MONO # 0.5 K/uL (0.0-0.8); MONO % 7.4 % (0.0-10.0); NEUT # 3.7 K/uL (1.8-7.0); NEUT % 60.8 % (50.0-75.0); NRBC % 0.1 % (0.0-2.0); RBC 4.81 Mil/uL (4.40-5.90); RED CELL DISTRIBUTION WIDTH 13.8 % (11.5-14.5); WHITE BLOOD COUNT 6.2 K/uL (4.8-10.8)
[2018-07-12 17:47] LABS: INR 1.2; PROTHROMBIN TIME 12.7 SECONDS (9.7-12.2)
[2018-07-12 17:51] LABS: ALB/GLOB RATIO 1.5 (1.0-2.1); ALBUMIN 4.4 g/dL (3.5-5.0); ALT/SGPT 34 U/L (21-72); AST/SGOT 32 U/L (17-59); BLOOD UREA NITROGEN 15 mg/dL (9-20); CALCIUM 9.4 mg/dl (8.6-10.4); GFR NON-AFRICAN AMERICAN > 60
--- NOTE | 2018-07-12 18:00 | C.PDOC ---
History Of Present Illness 83 y/o male presents to ED with c/o chest pain associated with sob, weakness and fatigue since earlier today. Patient states he has body aches and denies nausea, vomiting, diarrhea, leg swelling, cough or any other complaints at this time. Time Seen by Provider: 07/12/18 17:21 Chief Complaint (Nursing): Chest Pain History Per: Patient History/Exam Limitations: no limitations Onset/Duration Of Symptoms: Hrs Current Symptoms Are (Timing): Still Present Past Medical History Reviewed: Historical Data, Nursing Documentation, Vital Signs Vital Signs: Last Vital Signs Temp 97.5 F L 07/12/18 19:25 Pulse 50 L 07/12/18 19:25 Resp 14 07/12/18 19:25 BP 157/67 H 07/12/18 19:25 Pulse Ox 97 07/12/18 19:25 - Medical History PMH: HTN (denies) Surgical History: No Surg Hx Family History: States: No Known Family Hx - Social History Hx Alcohol Use: No Hx Substance Use: No - Immunization History Hx Tetanus Toxoid Vaccination: No Hx Influenza Vaccination: Yes Hx Pneumococcal Vaccination: No Review Of Systems Constitutional: Positive for: Weakness. Negative for: Fever, Chills Cardiovascular: Positive for: Chest Pain Respiratory: Positive for: Shortness of Breath. Negative for: Cough Gastrointestinal: Negative for: Nausea, Vomiting Skin: Negative for: Rash Physical Exam - Physical Exam Appears: Non-toxic, No Acute Distress Skin: Warm, Dry, No Rash Head: Atraumatic, Normacephalic Eye(s): bilateral: Normal Inspection Oral Mucosa: Moist Neck: Supple Chest: Symmetrical Cardiovascular: Rhythm Regular Respiratory: Normal Breath Sounds, No Rales, No Rhonchi, No Wheezing Gastrointestinal/Abdominal: Soft, No Tenderness, No Guarding, No Rebound Neurological/Psych: Oriented x3, Normal Speech, Normal Cognition ED Course And Treatment - Laboratory Results Result Diagrams: 07/12/18 17:35 07/12/18 17:35 ECG: Interpreted By Me, Viewed By Me ECG Rhythm: Sinus Bradycardia Interpretation Of ECG: Normal Intervals, Normal access. T wave inversion on V2 Rate From EC (BPM) O2 Sat by Pulse Oximetry: 95 (RA) Pulse Ox Interpretation: Normal Medical Decision Making Medical Decision Making: Assessment: Chest pain Disposition Discussed With : Jessica Dow Doctor Will See Patient In The: Hospital Counseled Patient/Family Regarding: Studies Performed, Diagnosis - Disposition Disposition: HOSPITALIZED Disposition Time: 20:06 Condition: FAIR Forms: [facility] (Russian) - Clinical Impression Clinical Impression: Chest pain, Bradycardia - Scribe Statement The provider has reviewed the documentation as recorded by the Vinodibkvng Crowley All medical record entries made by the Vinodibkvng were at my direction and personally dictated by me. I have reviewed the chart and agree that the record accurately reflects my personal performance of the history, physical exam, medical decision making, and the department course for this patient. I have also personally directed, reviewed, and agree with the discharge instructions and disposition.
[2018-07-12 18:02] LABS: B-TYPE NATRIURETIC PEPTIDE 89.5 pg/mL (0-900)
[2018-07-12 19:32] LABS: URINE BACTERIA RARE (<OCC); URINE BILIRUBIN NEGATIVE (NEGATIVE); URINE BLOOD NEGATIVE (NEGATIVE); URINE CLARITY Clear (Clear); URINE COLOR Yellow (YELLOW); URINE GLUCOSE (UA) NORMAL (Normal); URINE LEUKOCYTE ESTERASE NEG Leu/uL (Negative); URINE PROTEIN NEGATIVE (NEGATIVE); URINE UROBILINOGEN NORMAL mg/dL (0.2-1.0)
--- NOTE | 2018-07-13 00:13 | CP.PCM.CON ---
History of Present Illness - History of Present Illness History of Present Illness: 83 Male with abnormal EKG admitted for recurrent chest pains [id number], Statins for now HR low-No B blockers for now 83 y/o male presents to ED with c/o chest pain associated with sob, weakness and fatigue since earlier today. Patient states he has body aches and denies nausea, vomiting, diarrhea, leg swelling, cough or any other complaints at this time. Chief Complaint (Nursing): Chest Pain History Per: Patient History/Exam Limitations: no limitations Onset/Duration Of Symptoms: Hrs Current Symptoms Are (Timing): Still Present Past Medical History Reviewed: Historical Data, Nursing Documentation, Vital Signs Vital Signs: Last Vital Signs Temp 97.5 F L 07/12/18 19:25 Pulse 50 L 07/12/18 19:25 Resp 14 07/12/18 19:25 BP 157/67 H 07/12/18 19:25 Pulse Ox 97 07/12/18 19:25 - Medical History PMH: HTN (denies) Surgical History: No Surg Hx Family History: States: No Known Family Hx - Social History Hx Alcohol Use: No Hx Substance Use: No - Immunization History Hx Tetanus Toxoid Vaccination: No Hx Influenza Vaccination: Yes Hx Pneumococcal Vaccination: No Review Of Systems Constitutional: Positive for: Weakness. Negative for: Fever, Chills Cardiovascular: Positive for: Chest Pain Respiratory: Positive for: Shortness of Breath. Negative for: Cough Gastrointestinal: Negative for: Nausea, Vomiting Skin: Negative for: Rash Physical Exam - Physical Exam Appears: Non-toxic, No Acute Distress Skin: Warm, Dry, No Rash Head: Atraumatic, Normacephalic Eye(s): bilateral: Normal Inspection Oral Mucosa: Moist Neck: Supple Chest: Symmetrical Cardiovascular: Rhythm Regular Respiratory: Normal Breath Sounds, No Rales, No Rhonchi, No Wheezing Gastrointestinal/Abdominal: Soft, No Tenderness, No Guarding, No Rebound Neurological/Psych: Oriented x3, Normal Speech, Normal Cognition Past Patient History - Infectious Disease Hx of Infectious Diseases: None - Past Social History Smoking Status: Never Smoked - CARDIAC Hx Hypertension: Yes (denies) - ENDOCRINE/METABOLIC Hx Diabetes Mellitus Type 2: Yes (denies) - MUSCULOSKELETAL/RHEUMATOLOGICAL Hx Falls: No - PSYCHIATRIC Hx Substance Use: No - SURGICAL HISTORY Hx Surgeries: No - ANESTHESIA Hx Anesthesia: No Meds Allergies/Adverse Reactions: Allergies Allergy/AdvReac Type Severity Reaction Status Date / Time No Known Allergies Allergy Verified 07/12/18 16:48 - Medications Medications: Current Medications Acetaminophen (Tylenol 325mg Tab) 650 mg PO Q4H PRN PRN Reason: pain fever Aspirin (Ecotrin) 81 mg PO DAILY [facility] Enoxaparin Sodium (Lovenox) 30 mg SC DAILY [facility] Ergocalciferol (Drisdol 50,000 Intl Units Cap) 1 cap PO QWK [facility] Famotidine (Pepcid) 40 mg PO DAILY [facility] Multivitamins (Hexavitamin) 1 tab PO DAILY [facility] Rosuvastatin Calcium (Crestor) 5 mg PO HS [facility] Results - Vital Signs Recent Vital Signs: Last Vital Signs Temp 98.1 F 07/12/18 22:08 Pulse 47 L 07/12/18 22:08 Resp 18 07/12/18 22:08 BP 156/69 H 07/12/18 22:08 Pulse Ox 97 07/12/18 22:08 - Labs Result Diagrams: 07/13/18 08:05 07/13/18 08:05 Labs: Laboratory Results - last 24 hr 07/12/18 07/12/18 07/12/18 17:35 17:35 17:35 WBC 6.2 RBC 4.81 Hgb 14.9 Hct 43.7 MCV 90.8 D MCH 30.9 MCHC 34.0 RDW 13.8 Plt Count 163 MPV 8.1 Neut % (Auto) 60.8 Lymph % (Auto) 29.3 [place] % (Auto) 7.4 Eos % (Auto) 2.0 Baso % (Auto) 0.5 Neut # (Auto) 3.7 Lymph # (Auto) 1.8 [place] # (Auto) 0.5 Eos # (Auto) 0.1 Baso # (Auto) 0.0 PT 12.7 H INR 1.2 APTT 35 H Sodium 141 Potassium 4.4 Chloride 104 Carbon Dioxide 26 Anion Gap 15 BUN 15 Creatinine 0.7 L Est GFR ( Amer) > 60 Est GFR (Non-Af Amer) > 60 Random Glucose 99 Calcium 9.4 Total Bilirubin 0.5 AST 32 ALT 34 Alkaline Phosphatase 71 Troponin I 0.0180 NT-Pro-B Natriuret Pep 89.5 Total Protein 7.3 Albumin 4.4 Globulin 2.9 Albumin/Globulin Ratio 1.5 Urine Color Urine Clarity Urine pH Ur Specific [place] Urine Protein Urine Glucose (UA) Urine Ketones Urine Blood Urine Nitrate Urine Bilirubin Urine Urobilinogen Ur Leukocyte Esterase Urine WBC (Auto) Urine RBC (Auto) Urine Bacteria 07/12/18 19:35 WBC RBC Hgb Hct MCV MCH MCHC RDW Plt Count MPV Neut % (Auto) Lymph % (Auto) [place] % (Auto) Eos % (Auto) Baso % (Auto) Neut # (Auto) Lymph # (Auto) [place] # (Auto) Eos # (Auto) Baso # (Auto) PT INR APTT Sodium Potassium Chloride Carbon Dioxide Anion Gap BUN Creatinine Est GFR ( Amer) Est GFR (Non-Af Amer) Random Glucose Calcium Total Bilirubin AST ALT Alkaline Phosphatase Troponin I NT-Pro-B Natriuret Pep Total Protein Albumin Globulin Albumin/Globulin Ratio Urine Color Yellow Urine Clarity Clear Urine pH 7.0 Ur Specific [place] 1.015 Urine Protein Negative Urine Glucose (UA) Normal Urine Ketones Negative Urine Blood Negative Urine Nitrate Negative Urine Bilirubin Negative Urine Urobilinogen Normal Ur Leukocyte Esterase Neg Urine WBC (Auto) 1 Urine RBC (Auto) 1 Urine Bacteria Rare Assessment & Plan - Assessment and Plan (Free Text) Assessment: Abnormal EKG/Recurrent chest pain Hx of prior [place] Karyna benefit from cardiac cath Will d/w Family Agreeable cath on Saturday Hx of Hypertension -hold antihypertensive (son inhibitor) -monitor on telemetry Lipid disorder - Lipid panel AM - Held statin Asthma, controlled - duonebs [id number] PRN shortness of breath -portable chest xray: reason - dry cough Prophylactic care -Fall precautions -PT/OT evaluations -DVT prophylaxis: Lovenox 40mg subQ daily, SCDs -GI prophylaxis: Pepcid 20mg PO bid
[2018-07-13 02:42] LABS: CK-MB 4.63 ng/mL (0.0-3.38); TROPONIN I 0.014 ng/mL (0.00-0.120)
--- NOTE | 2018-07-13 08:08 | RAD ---
Chest x-ray single frontal view History: Shortness of breath. Comparison: 05/20/2018 Findings: Biapical pleural thickening with upper lobe granulomatous changes. Diffuse increased interstitial lung markings. Small nodular density at the right lung base may represent confluence of shadows with ribs and vessels versus small nodule. Diffuse increased interstitial lung markings. Tortuous aorta. Mild cardiomegaly. Degenerative changes in the spine and shoulders. Impression: Biapical pleural thickening with upper lobe granulomatous changes. Diffuse increased interstitial lung markings. Small nodular density at the right lung base may represent confluence of shadows with ribs and vessels versus small nodule. Diffuse increased interstitial lung markings. Tortuous aorta. Mild cardiomegaly.
[2018-07-13 08:15] LABS: HEMOGLOBIN 15.3 g/dL (12.0-18.0); MEAN CELL VOLUME 89.3 fL (80.0-94.0); MEAN CORPUSCULAR HGB CONC 34.7 g/dL (33.0-37.0); MEAN PLATELET VOLUME 8.2 fL (7.2-11.7); RBC 4.92 Mil/uL (4.40-5.90); RED CELL DISTRIBUTION WIDTH 14.3 % (11.5-14.5); WHITE BLOOD COUNT 4.6 K/uL (4.8-10.8)
[2018-07-13 08:30] LABS: HDL CHOLESTEROL 38 mg/dL (30-70)
[2018-07-13 08:37] LABS: ALB/GLOB RATIO 1.3 (1.0-2.1); ALBUMIN 3.8 g/dL (3.5-5.0); ALT/SGPT 32 U/L (21-72); AST/SGOT 33 U/L (17-59); BLOOD UREA NITROGEN 14 mg/dL (9-20); CALCIUM 9.4 mg/dl (8.6-10.4); GFR NON-AFRICAN AMERICAN > 60
[2018-07-13 08:39] LABS: CK-MB 4.28 ng/mL (0.0-3.38)
[2018-07-13 08:43] LABS: LDL CHOLESTEROL 120 mg/dL (0-129)
[2018-07-13] MEDS: Multiple Vitamins Tab PO SCH (09:48)
[2018-07-13] MEDS: Enoxaparin 30 mg Syringe SC SCH ×2 (09:48→09:50)
[2018-07-13] MEDS ORDERED: Ergocalciferol 50,000 Intl Units Cap PO SCH (10:00)
--- NOTE | 2018-07-13 22:34 | CP.PCM.PN ---
Subjective - Date & Time of Evaluation Date of Evaluation: 07/13/18 Time of Evaluation: 22:34 - Subjective Subjective: Patient seen and evaluated Denies chest pain and dyspnea Review Of Systems Constitutional: Positive for: Weakness. Negative for: Fever, Chills Cardiovascular: Positive for: Chest Pain Respiratory: Positive for: Shortness of Breath. Negative for: Cough Gastrointestinal: Negative for: Nausea, Vomiting Skin: Negative for: Rash Physical Exam - Physical Exam Appears: Non-toxic, No Acute Distress Skin: Warm, Dry, No Rash Head: Atraumatic, Normacephalic Eye(s): bilateral: Normal Inspection Oral Mucosa: Moist Neck: Supple Chest: Symmetrical Cardiovascular: Rhythm Regular Respiratory: Normal Breath Sounds, No Rales, No Rhonchi, No Wheezing Gastrointestinal/Abdominal: Soft, No Tenderness, No Guarding, No Rebound Neurological/Psych: Oriented x3, Normal Speech, Normal Cognition Objective - Vital Signs/Intake and Output Vital Signs (last 24 hours): Temp Pulse Resp BP Pulse Ox 98 F 44 L 18 138/71 97 07/13/18 16:00 07/13/18 16:00 07/13/18 16:00 07/13/18 16:00 07/13/18 16:00 Intake and Output: 07/13/18 07/14/18 18:59 06:59 Intake Total 400 Balance 400 - Medications Medications: Current Medications Acetaminophen (Tylenol 325mg Tab) 650 mg PO Q4H PRN PRN Reason: pain fever Aspirin (Ecotrin) 81 mg PO DAILY [facility] Last Admin: 07/13/18 09:48 Dose: 81 mg Enoxaparin Sodium (Lovenox) 30 mg SC DAILY [facility] Last Admin: 07/13/18 09:50 Dose: Not Given Ergocalciferol (Drisdol 50,000 Intl Units Cap) 1 cap PO QWK [facility] Last Admin: 07/13/18 09:48 Dose: 1 cap Famotidine (Pepcid) 40 mg PO DAILY [facility] Last Admin: 07/13/18 09:48 Dose: 40 mg Multivitamins (Hexavitamin) 1 tab PO DAILY [facility] Last Admin: 07/13/18 09:48 Dose: 1 tab Pneumococcal Polyvalent Vaccine (Pneumovax 23 Vaccine) 0.5 ml IM .ONCE ONE Stop: 07/15/18 14:01 Rosuvastatin Calcium (Crestor) 5 mg PO HS DOMI - Labs Labs: 07/13/18 08:05 07/13/18 08:05 PT 12.7 SECONDS (9.7-12.2) H 07/12/18 17:35 INR 1.2 07/12/18 17:35 APTT 35 SECONDS (21-34) H 07/12/18 17:35 Assessment and Plan - Assessment and Plan (Free Text) Assessment: Abnormal EKG/Recurrent chest pain Hx of prior HI Karyna benefit from cardiac cath Will d/w Family Agreeable cath on Saturday Hx of Hypertension -hold antihypertensive (son inhibitor) -monitor on telemetry Lipid disorder - Lipid panel AM - Held statin Asthma, controlled - duonebs [id number] PRN shortness of breath -portable chest xray: reason - dry cough Prophylactic care -Fall precautions -PT/OT evaluations -DVT prophylaxis: Lovenox 40mg subQ daily, SCDs -GI prophylaxis: Pepcid 20mg PO bid
[2018-07-14 01:03] VITALS: RESP 20
[2018-07-14] MEDS: Multiple Vitamins Tab PO SCH (10:33)
[2018-07-14] MEDS: Enoxaparin 30 mg Syringe SC SCH ×2 (10:33→10:40)
[2018-07-14] MEDS: (Novolin R) Insulin Human Regular 100 units/ml vial SC SCH ×3 (12:14→22:38)
--- NOTE | 2018-07-14 16:28 | CP.PCM.PN ---
<Guy Willis E - Last Filed: 07/14/18 16:59> Subjective - Date & Time of Evaluation Date of Evaluation: 07/14/18 Time of Evaluation: 11:10 - Subjective Subjective: Cardiology progress note ( Dr. Streeter's service) Patient was seen and examined at bedside. Patient reports that he is doing well and denies any new complaints. Patient denies any symptoms of chest pain, SOB, palpitations, lightheadedness. Patient reports improving symptoms. Objective - Vital Signs/Intake and Output Vital Signs (last 24 hours): Temp Pulse Resp BP Pulse Ox 98.0 F 61 20 153/78 H 97 07/14/18 07:00 07/14/18 07:57 07/14/18 07:00 07/14/18 07:00 07/14/18 07:00 Intake and Output: 07/14/18 07/14/18 06:59 18:59 Intake Total 360 Output Total 100 Balance 260 - Medications Medications: Current Medications Acetaminophen (Tylenol 325mg Tab) 650 mg PO Q4H PRN PRN Reason: pain fever Aspirin (Ecotrin) 81 mg PO DAILY [facility] Last Admin: 07/14/18 10:36 Dose: 81 mg Enoxaparin Sodium (Lovenox) 30 mg SC DAILY [facility] Last Admin: 07/14/18 10:40 Dose: Not Given Ergocalciferol (Drisdol 50,000 Intl Units Cap) 1 cap PO QWK [facility] Last Admin: 07/13/18 09:48 Dose: 1 cap Famotidine (Pepcid) 40 mg PO DAILY [facility] Last Admin: 07/14/18 10:34 Dose: 40 mg Insulin Human Regular (Novolin R) 0 unit SC [facility] PRN Reason: Protocol Last Admin: 07/14/18 12:14 Dose: Not Given Multivitamins (Hexavitamin) 1 tab PO DAILY [facility] Last Admin: 07/14/18 10:33 Dose: 1 tab Pneumococcal Polyvalent Vaccine (Pneumovax 23 Vaccine) 0.5 ml IM .ONCE ONE Stop: 07/15/18 14:01 Rosuvastatin Calcium (Crestor) 5 mg PO HS [facility] Last Admin: 07/13/18 23:04 Dose: 5 mg - Labs Labs: 07/13/18 08:05 07/13/18 08:05 PT 12.7 SECONDS (9.7-12.2) H 07/12/18 17:35 INR 1.2 07/12/18 17:35 APTT 35 SECONDS (21-34) H 07/12/18 17:35 - Constitutional Appears: Well, No Acute Distress - Head Exam Head Exam: ATRAUMATIC, NORMAL INSPECTION - Eye Exam Eye Exam: EOMI, Normal appearance - ENT Exam ENT Exam: Mucous Membranes Moist - Respiratory Exam Respiratory Exam: NORMAL BREATHING PATTERN. absent: Prolonged Expiratory Phase , Rhonchi, Wheezes - Cardiovascular Exam Cardiovascular Exam: REGULAR RHYTHM, +S1, +S2 - GI/Abdominal Exam GI & Abdominal Exam: Soft, Normal Bowel Sounds. absent: Distended, Firm, Guarding, Rigid, Tenderness - Extremities Exam Extremities Exam: Normal Inspection - Neurological Exam Neurological Exam: Alert, Awake, Oriented x3 - Psychiatric Exam Psychiatric exam: Normal Affect - Skin Skin Exam: Normal Color Assessment and Plan (1) Chest pain Assessment & Plan: Troponin Negative X3 EKG: No acute changes currently. Hx of abnormal EKG and recurrent chest pain Echo: LV systolic function is normal. EF: 60-65%. Please refer to the EMR for complete impression Lipid Panel: TGL: 162, Chol: 205, LDL:120 and HDL: 38 TSH 3rd Gen: 1.57, WNL HbgA1C: 6.1 ASA 81mg PO daily Crestor 5mg PO HS Plans for cardiac catherization tomorrow Status: Acute (2) Prophylactic measure Assessment & Plan: DVT: Lovenox 30mg SC daily GI: Pepcid 40mg PO daily Multivitamin 1 tab PO daily Plans for cardiac catherization tomorrow All plans and management discussed with Dr. Streeter Status: Acute <Munir Streeter - Last Filed: 07/14/18 21:44> Objective - Vital Signs/Intake and Output Vital Signs (last 24 hours): Temp Pulse Resp BP Pulse Ox 98.0 F 58 L 20 153/78 H 97 07/14/18 07:00 07/14/18 16:00 07/14/18 07:00 07/14/18 07:00 07/14/18 07:00 - Medications Medications: Current Medications Acetaminophen (Tylenol 325mg Tab) 650 mg PO Q4H PRN PRN Reason: pain fever Aspirin (Ecotrin) 81 mg PO DAILY [facility] Last Admin: 07/14/18 10:36 Dose: 81 mg Enoxaparin Sodium (Lovenox) 30 mg SC DAILY [facility] Last Admin: 07/14/18 10:40 Dose: Not Given Ergocalciferol (Drisdol 50,000 Intl Units Cap) 1 cap PO QWK [facility] Last Admin: 07/13/18 09:48 Dose: 1 cap Famotidine (Pepcid) 40 mg PO DAILY [facility] Last Admin: 07/14/18 10:34 Dose: 40 mg Insulin Human Regular (Novolin R) 0 unit SC [facility] PRN Reason: Protocol Last Admin: 07/14/18 17:16 Dose: Not Given Multivitamins (Hexavitamin) 1 tab PO DAILY [facility] Last Admin: 07/14/18 10:33 Dose: 1 tab Pneumococcal Polyvalent Vaccine (Pneumovax 23 Vaccine) 0.5 ml IM .ONCE ONE Stop: 07/15/18 14:01 Rosuvastatin Calcium (Crestor) 5 mg PO HS [facility] Last Admin: 07/13/18 23:04 Dose: 5 mg - Labs Labs: 07/13/18 08:05 07/13/18 08:05 PT 12.7 SECONDS (9.7-12.2) H 07/12/18 17:35 INR 1.2 07/12/18 17:35 APTT 35 SECONDS (21-34) H 07/12/18 17:35 Assessment and Plan - Assessment and Plan (Free Text) Assessment: Patient seen and evaluated personally by wa Plan of care d/w the resident and as documented
--- NOTE | 2018-07-15 04:37 | PN ---
DATE: 07/14/2018 SUBJECTIVE: The patient was seen and examined at the bedside on 07/14/2018 and looking comfortable. The patient is not a very good historian. No nausea, vomiting, or diarrhea. No fever. No chills. No shortness of breath. Denies any new complaints. Night was uneventful. The patient reports improving symptoms. PHYSICAL EXAMINATION: VITAL SIGNS: Temperature 98, pulse 51, respiratory rate 20, blood pressure 150/70, pulse oximetry 97. HEENT: Head is normocephalic, atraumatic. Eyes PERRLA. Extraocular muscles intact. Conjunctivae clear. Nose patent. Mucous membrane moist. NECK: Supple. No carotid bruits, JVD, or thyromegaly. CHEST: Bilaterally symmetrical. HEART: S1 and S2 positive. LUNGS: Clear to auscultation. ABDOMEN: Soft. Bowel sound present. No organomegaly. EXTREMITIES: No edema. No cyanosis. NEUROLOGIC: The patient is awake and alert. Follows simple command. MEDICATIONS: Tylenol, Ecotrin, Lovenox, vitamin D, Pepcid, insulin, multivitamins, Pneumovax, Crestor. LABORATORY DATA: White blood cells 4.6, hemoglobin 15.3, hematocrit 43.9, platelets 152. Sodium 139, potassium 4.5, BUN 14, creatinine 0.7, glucose 111. ASSESSMENT AND PLAN: Mr. Jorge Briceno is an 83-year-old male with leukopenia; hyperglycemia; came with chest pain, troponin negative x3. Electrocardiogram, no acute changes. History of normal electrocardiogram and recurrent chest pain. Echo showed left ventricle systolic function normal. Hypercholesterolemia. Plan is to continue aspirin and Crestor. Cardiac catheterization tomorrow as per Cardiology. Gastrointestinal and deep venous thrombosis prophylaxis given. The patient is getting Lovenox and Pepcid. I appreciate Dr. Streeter's input. Repeat labs. Fall precautions, out of bed physical therapy/occupational therapy. patient in the telemetry. We will follow up. Jessica Dow MD MTDD
[2018-07-15] MEDS: (Novolin R) Insulin Human Regular 100 units/ml vial SC SCH ×4 (07:34→22:09)
[2018-07-15] MEDS ORDERED: Verapamil 2 ML ONE (08:18)
[2018-07-15] MEDS ORDERED: Midazolam 2 MG/2 ML VIAL ONE (08:19)
[2018-07-15] MEDS ORDERED: Nitroglycerin 50mg in D5W 50 MG/250 ML BOTTLE IV ONE (08:19)
[2018-07-15] MEDS ORDERED: Iodixanol 320 MG/ML 200 ML BOTTLE IV ONE (08:19)
[2018-07-15] MEDS ORDERED: Lidocaine 2% MPF (5 ml) Inj ONE (08:20)
[2018-07-15] MEDS ORDERED: Sodium Chloride 0.45% 1,000 ML IV SCH (09:15)
[2018-07-15] MEDS: Enoxaparin 30 mg Syringe SC SCH (10:00)
[2018-07-15] MEDS: Multiple Vitamins Tab PO SCH ×2 (10:00→14:40)
--- NOTE | 2018-07-15 13:07 | HP ---
date 07/13/18 , The patient was seen and examined at the bedside on 07/13/2018. CHIEF COMPLAINT: Chest pain. HISTORY OF PRESENT ILLNESS: Mr. Jorge Briceno is an 83-year-old male who came in with chest pain associated with shortness of breath, weakness, and fatigue since the day of admission. The patient stated that he has body aches. Denies any nausea, vomiting, or diarrhea. No swelling of the legs. No fever. No chills. No headache or dizziness. PAST MEDICAL HISTORY: Hypertension. PAST SURGICAL HISTORY: No surgery. FAMILY HISTORY: Father and mother, noncontributory. HABITS: No smoking. No drug. No ethanol. ALLERGIES: THE PATIENT IS NOT ALLERGIC WITH ANY MEDICATIONS. HOME MEDICATIONS: Denied. PHYSICAL EXAMINATION: VITAL SIGNS: Temperature 97.5, pulse 50, respiratory rate 14, and blood pressure 150/67. HEENT: Head is normocephalic and atraumatic. Eyes, PERRLA. Extraocular muscles are intact. Conjunctivae clear. Nose is patent. Mucous membrane moist. NECK: Supple. No carotid bruit. No thyromegaly. CHEST: Bilaterally symmetrical. HEART: S1 and S2 positive. LUNGS: Clear to auscultation. ABDOMEN: Soft. Bowel sounds present. No organomegaly. EXTREMITIES: No edema. No cyanosis. NEUROLOGICAL: The patient is awake and alert. Moving all four extremities. No focal deficits. LABORATORY DATA: White blood cells 6.6, hemoglobin 14.9, hematocrit 43.7, and platelets 153. Sodium 141, potassium 4.4, BUN 15, creatinine 0.7, and glucose 99. ASSESSMENT AND PLAN: Mr. Jorge Briceno is an 83-year-old male who came with chest pain. Cardiology consult called, Dr. Munir Streeter. History of hypertension. Lipid panel ordered. DuoNeb given. Fall precautions. Physical therapy and occupational therapy evaluation. Deep venous thrombosis with Lovenox and SCD. Gastrointestinal prophylaxis with Pepcid. Patient to evaluate EKG for recurrent chest pain. History of prior myocardial infarction as per patient, likely benefited by cardiac catheterization as per police chief deputy. We will follow up. Jessica Dow MD KELLY
[2018-07-15] MEDS ORDERED: Pneumococcal 23-Valent Vaccine IM ONE (14:00)
--- NOTE | 2018-07-15 22:38 | CP.PCM.PN ---
Subjective - Date & Time of Evaluation Date of Evaluation: 07/15/18 Time of Evaluation: 15:10 - Subjective Subjective: Patient s/p Cath Normal Coronaries and Normal EF Medical management Objective - Vital Signs/Intake and Output Vital Signs (last 24 hours): Temp Pulse Resp BP Pulse Ox 97.9 F 51 L 20 131/64 96 07/15/18 15:56 07/15/18 16:49 07/15/18 15:56 07/15/18 15:56 07/15/18 15:56 Intake and Output: 07/15/18 07/16/18 18:59 06:59 Intake Total 20 Balance 20 - Medications Medications: Current Medications Acetaminophen (Tylenol 325mg Tab) 650 mg PO Q4H PRN PRN Reason: pain fever Aspirin (Ecotrin) 81 mg PO DAILY [facility] Last Admin: 07/15/18 10:00 Dose: Not Given Enoxaparin Sodium (Lovenox) 30 mg SC DAILY [facility] Last Admin: 07/15/18 10:00 Dose: Not Given Ergocalciferol (Drisdol 50,000 Intl Units Cap) 1 cap PO QWK [facility] Last Admin: 07/13/18 09:48 Dose: 1 cap Famotidine (Pepcid) 40 mg PO DAILY [facility] Last Admin: 07/15/18 14:40 Dose: 40 mg Insulin Human Regular (Novolin R) 0 unit SC [facility] PRN Reason: Protocol Last Admin: 07/15/18 22:09 Dose: Not Given Multivitamins (Hexavitamin) 1 tab PO DAILY [facility] Last Admin: 07/15/18 14:40 Dose: 1 tab Rosuvastatin Calcium (Crestor) 5 mg PO HS [facility] Last Admin: 07/15/18 21:51 Dose: 5 mg - Labs Labs: 07/13/18 08:05 07/13/18 08:05 PT 12.7 SECONDS (9.7-12.2) H 07/12/18 17:35 INR 1.2 07/12/18 17:35 APTT 35 SECONDS (21-34) H 07/12/18 17:35
--- NOTE | 2018-07-16 03:40 | PN ---
DATE: 07/15/2018 SUBJECTIVE: The patient seen and examined at the bedside on 07/15/2018, looking comfortable. Looks little bit anxious. Looks like he lost something. No nausea, vomiting, diarrhea. No hematuria or hematochezia. No swelling of the legs. No chest pain. No palpitation. PHYSICAL EXAMINATION: VITAL SIGNS: Temperature 97.9, pulse 51, respiratory rate 20, blood pressure 130/64, pulse oximetry 96. HEENT: Head normocephalic and atraumatic. Eyes PERRLA. Extraocular muscles intact. Conjunctivae clear. Nose patent. Mucous membranes are moist. NECK: Supple. No carotid bruits, JVD, or thyromegaly. CHEST: Bilaterally symmetrical. HEART: S1 and S2 positive. LUNGS: Clear to auscultation. ABDOMEN: Soft. Bowel sounds present. No organomegaly. EXTREMITIES: No edema. No cyanosis. NEUROLOGICAL: The patient is awake and alert. Moving all four extremities. No focal deficits. MEDICATIONS: Aspirin, acetaminophen, Lovenox, vitamin D, Pepcid, insulin, multivitamins, and Crestor. LABORATORY DATA: White blood cell 4.6, hemoglobin 15.3, hematocrit 43.9, and platelets 154,000. Sodium 139, potassium 4.5, BUN 14, creatinine 0.4, and glucose 112. ASSESSMENT AND PLAN: Mr. Jorge Briceno had leukopenia, anemia, hyperglycemia. The patient went for coronary artery disease stenting, looks like the patient has normal ejection fraction and needs medical treatment. Gastrointestinal and deep venous thrombosis prophylaxis. Repeat labs. We will follow up. Jessica Dow MD MTDD
[2018-07-16 07:46] VITALS: BP 145/73; TEMP 97.5; O2SAT 96
[2018-07-16] MEDS: (Novolin R) Insulin Human Regular 100 units/ml vial SC SCH (07:51)
[2018-07-16] MEDS: Enoxaparin 30 mg Syringe SC SCH (10:13)
[2018-07-16] MEDS: Multiple Vitamins Tab PO SCH (10:13)
--- NOTE | 2018-07-16 10:41 | CP.PCM.PN ---
Subjective - Date & Time of Evaluation Date of Evaluation: 07/16/18 Time of Evaluation: 10:39 - Subjective Subjective: D/C ORDER WRITTEN BY DR. MOORE, HOWEVER, RX TO BE GIVEN BY [employer]ACHINE OPERATOR. I CALLED DR. MOORE TO DISCUSS RX AND WILL REFILL HOME MEDS AND GIVE NEW RX FOR ASA AND CRESTOR. NO FURTHER ORDERS. PRIMARY RN CARLITA Cates TO SPEAK WITH DR THOMAS TO CLARIFY IS PT IS CLEARED CARDIAC [place] OR NOT FOR D/C. Objective - Vital Signs/Intake and Output Vital Signs (last 24 hours): Temp Pulse Resp BP Pulse Ox 97.5 F L 51 L 20 145/73 96 07/16/18 07:00 07/16/18 07:00 07/16/18 07:00 07/16/18 07:00 07/16/18 07:00 - Medications Medications: Current Medications Acetaminophen (Tylenol 325mg Tab) 650 mg PO Q4H PRN PRN Reason: pain fever Aspirin (Ecotrin) 81 mg PO DAILY [facility] Last Admin: 07/16/18 10:13 Dose: 81 mg Enoxaparin Sodium (Lovenox) 30 mg SC DAILY [facility] Last Admin: 07/16/18 10:13 Dose: Not Given Ergocalciferol (Drisdol 50,000 Intl Units Cap) 1 cap PO QWK [facility] Last Admin: 07/13/18 09:48 Dose: 1 cap Famotidine (Pepcid) 40 mg PO DAILY [facility] Last Admin: 07/16/18 10:13 Dose: 40 mg Insulin Human Regular (Novolin R) 0 unit SC [facility] PRN Reason: Protocol Last Admin: 07/16/18 07:51 Dose: Not Given Multivitamins (Hexavitamin) 1 tab PO DAILY [facility] Last Admin: 07/16/18 10:13 Dose: 1 tab Rosuvastatin Calcium (Crestor) 5 mg PO HS [facility] Last Admin: 07/15/18 21:51 Dose: 5 mg - Labs Labs: 07/13/18 08:05 07/13/18 08:05 PT 12.7 SECONDS (9.7-12.2) H 07/12/18 17:35 INR 1.2 07/12/18 17:35 APTT 35 SECONDS (21-34) H 07/12/18 17:35
[2018-07-16 18:12] VITALS: PULSE 56
--- NOTE | 2018-07-20 21:28 | CARDCATH ---
PROCEDURE DATE: 07/15/2018 PROCEDURES: 1. Left heart catheterization. 2. Coronary angiogram. CLINICAL INDICATIONS: 1. Unstable angina. 2. Bradycardia. 3. Hypertension. 4. Hyperlipidemia. REFERRING PHYSICIAN: Jessica Dow MD PERFORMING PHYSICIAN: Munir Streeter MD. DESCRIPTION OF PROCEDURE: After informed consent from the family, the patient was prepped and draped in the usual sterile fashion. Lidocaine 2% was given in the right groin for local anesthesia. Using micropuncture technique, a 6-[place] sheath was introduced into the right common femoral artery. A JL4 6-[place] diagnostic catheter engaged into the left main coronary artery. Contrast injected and left coronary angiogram was done. Then, the catheter was exchanged to JR4 6-[place] diagnostic catheter. The catheter crossed into left ventricle across the aortic valve. LV end diastolic pressures measured. Contrast injected and LV angiogram was done. Then, the catheter was pulled back across the aortic valve. Gradient across the aortic valve was measured. Then the same catheter was engaged into the right coronary artery. Contrast injected and right coronary angiogram was done The patient tolerated the procedure well. Radiological supervision and radiological interpretation of the coronary angiogram and LV angiogram were done. FINDINGS: 1. Left main coronary artery is patent. 2. LAD and diagonal branches are patent. 3. Left circumflex and obtuse marginal branches are patent. 4. Right coronary artery is dominant and patent. 5. LV ejection fraction is approximately 65%. No wall motion abnormalities noted. EDP is 22. No gradient across the aortic valve. IMPRESSION: 1. Normal coronaries. 2. Normal left ventricular systolic function. RECOMMENDATIONS: Recommend medical management. Munir Streeter MD
== END 2018-07-16 13:40 | disposition home or self-care (01) | DRG 287 ==
LOC: C.ER 16:41 → C.9E 20:04 → C.6T 21:32
PROVIDERS: ADMIT Internal Medicine; ATTEND Internal Medicine
PROC: 4A023N7 Measurement of Cardiac Sampling and Pressure, Left Heart, Percutaneous Approach (ICD-10-PCS; principal; 2018-07-15)
PROC: B2151ZZ Fluoroscopy of Left Heart using Low Osmolar Contrast (ICD-10-PCS; 2018-07-15)
PROC: B2111ZZ Fluoroscopy of Multiple Coronary Arteries using Low Osmolar Contrast (ICD-10-PCS; 2018-07-15)
DX: I20.0 Unstable angina (principal); R00.1 Bradycardia, unspecified; R94.31 Abnormal electrocardiogram [ECG] [EKG]; I10 Essential (primary) hypertension; D72.819 Decreased white blood cell count, unspecified; J45.909 Unspecified asthma, uncomplicated; E78.5 Hyperlipidemia, unspecified; D64.9 Anemia, unspecified; E78.00 Pure hypercholesterolemia, unspecified; I25.2 Old myocardial infarction